=== PATIENT | female | born 1985 | race Two or more races ===

== ENCOUNTER 2017-04-12 10:45 | Outpatient (CLI) | payer OTHER | END 2017-04-12 10:52 | disposition home or self-care (01) | LOC: RAD 10:45 | DX: J40 Bronchitis, not specified as acute or chronic (principal) ==

== ENCOUNTER → 2017-05-27 | Outpatient (CLI) | payer OTHER | END | disposition home or self-care (01) | LOC: PPHC 08:46 | DX: Z11.3 Encounter for screening for infections with a predominantly sexual mode of transmission (principal) ==